=== PATIENT | male | born 1980 | race Caucasian/White ===

== ENCOUNTER 2022-07-31 04:35 | Emergency (ER) | payer SELFPAY ==
[~2022-07-31] VITALS: Ht 180.3 cm; Wt 77.3 kg
[2022-07-31 04:37] VITALS: BP 115/70
== END 2022-07-31 07:21 | disposition left against medical advice (07) ==
LOC: ER 04:37 → EDBD 04:37 → ER 07:21
DX: J00 Acute nasopharyngitis [common cold] (principal); Z53.21 Procedure and treatment not carried out due to patient leaving prior to being seen by health care provider